=== PATIENT | male | born 1955 | race Caucasian/White ===

== ENCOUNTER 2021-10-15 10:10 | Day surgery (SDC) | payer MEDICARE, OTHER ==
[~2021-10-15] VITALS: Ht 170.2 cm; Wt 90.9 kg
[~2021-10-15 10:10] MED LIST: MELOXICAM7.5 MG PO; TYLENOL325 MG PO; ZYRTEC10 M3 PO
--- NOTE | 2021-10-15 13:17 | NUR ---
10/15/21 1317 Luzma Collins 1232 PT ARRIVED IN PACU SLEEPY LAYING PRONE. NO C/O'S. 1245 RESTING. REU. 1300 SITTING AT SIDE OF BED SIPPING ON WATER. 1305 LEFT VIA W/C.
--- NOTE | 2021-10-17 16:32 | PATH ---
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 D46.9 (myelodysplastic syndrome, unspecified) DIAGNOSIS SUMMARY: A. Peripheral blood - Moderate macrocytic, normochromic anemia. B. Bone marrow aspirate smears, clot section (cell block) and core biopsy: - Hypercellular bone marrow (80%) with dyshematopoiesis and ring sideroblasts consistent with myelodysplastic syndrome. - No increase in blasts. - Please see Diagnostic Comment. DIAGNOSTIC COMMENT: Bone marrow evaluation is significant for marked hypercellularity and dyserythropoiesis predominantly seen in erythroid and megakaryocyte lineage. Many ring sideroblasts are also identified on iron stain. Patient history of myelodysplastic syndrome ([id number], 04/12/2018) is noted. The current findings are also consistent with myelodysplastic syndrome, multilineage dysplasia with ring sideroblasts (MDS-ML-RS). No increase in blasts is present. Karyotype analysis, MDS FISH panel, and molecular analysis for SF3B1 mutation are being performed and the results will be reported by addendum. This case is reviewed and dictated by Ender Garcia MD. A board-certified hematopathologist. NA:smn:C2NR PERIPHERAL BLOOD: HEMOGRAM ([facility]; 10/15/2021): WBC 4.5 K/uL, RBC 2.07 M/uL, HGB 8.7 g/dL, HCT 25.6%, MCV 123.8 fL, MCH 42.0 pg, MCHC 33.9 g/dL, RDW 16.0%, PLT 372 K/uL. DIFFERENTIAL COUNT: 47% neutrophils, 39% lymphocytes, 10.7% monocytes, 3.3% eosinophils, 0.1% basophils. Review of the peripheral blood smear and CBC data demonstrate that the RBCs are decreased in number and are macrocytic with moderate anemia present. Mild anisopoikilocytosis is noted with occasional nucleated RBCs encountered. No rouleaux formation is identified. The WBCs are PATIENT NAME: GRAEME ALARCON PATHOLOGY DATE OF : 53 REPORT #: [id number] PHYSICIAN: HUMBERTO PATHOLOGY PCP: DONAL URBAN REPORT IS CONFIDENTIAL AND NOT TO BE RELEASED WITHOUT AUTHORIZATION [facility] [address] [place], [place] [address] Signed normal in number and unremarkable in morphology. The platelets are normal in number with occasional large platelets seen. BONE MARROW: BONE MARROW ASPIRATE SMEARS: The bone marrow aspirate smears are adequately cellular for evaluation. Trilineage hematopoiesis is present. Erythroid hyperplasia is noted. The erythroid precursors are left shifted with megaloblastic changes noted. Dyshematopoiesis is also identified. No increase in blasts is present. The megakaryocytes are scattered and appear increased in number with some showing atypical morphology characterized by atypical multinucleation and occasional micro megakaryocytes seen. BONE MARROW DIFFERENTIAL: 1% blasts, 9% myelocytes, 32% neutrophils, 4% lymphocytes, 5% eosinophils, and 49% erythroid. BONE MARROW CORE BIOPSY AND CLOT SECTION: The bone marrow core biopsy demonstrates markedly hypercellular bone marrow with an average cellularity of 80%. The trilineage hematopoiesis is present with progressive maturation. There are no lymphoid aggregates, granulomas, or metastatic tumor cells present. The megakaryocytes are increased in number with atypical morphology. The cell block shows similar findings. SPECIAL STAINS (with appropriately active control): - Iron (aspirate smear): Storage iron increased with increased ring sideroblasts (more than 30%). - Iron (block B): Storage iron present, ring sideroblasts identified. - Reticulin stain (block A1): Moderate increase in bone marrow reticulin fibrosis (MF-2). - PAS: Highlights many megakaryocytes and erythroid precursors. IMMUNOHISTOCHEMICAL STAINS (performed on block A1 with appropriately active control): - CD34: No increased number of blasts. - CD117: No increased number of blasts. - MPO: Highlights myeloid precursors. - CD71: Highlights erythroid precursors. - E-cadherin: Highlights early erythroid precursors. - Factor VIII: Highlights megakaryocytes with abnormal morphology. NA:smn FLOW CYTOMETRY: Bone marrow aspirate, flow cytometry: PATIENT NAME: GRAEME ALARCON PATHOLOGY DATE OF : 53 REPORT #: [id number] PHYSICIAN: HUMBERTO PATHOLOGY PCP: DONAL URBAN REPORT IS CONFIDENTIAL AND NOT TO BE RELEASED WITHOUT AUTHORIZATION [facility] [address] [facility] [place], [place] [address] Signed - No increase in blasts (0.8% myeloblasts). - Myeloid with variable marking. - Monocytes with increase CD56 expression. - B-cells with mild Lambda bias. - No atypical T- cell population. - See Comment. COMMENT: Patient history of myelodysplastic syndrome (MDS) is noted. No increase in blasts is detected. Variable myeloid and monocytic marking could be seen in MDS. Correlation with clinical, morphologic, and genetic findings is recommended for full interpretation. FLOW CYTOMETRY ANALYSIS: FLOW DIFFERENTIAL (% Total CD45 vs. SSC gating): Myeloid 87%; Lymphoid 5%; Monocyte 2%; Dim CD45/Blast: 0.9%. Cell Count: 8.5 x 10*3/uL. POPULATION ANALYSIS: BLASTS: Analysis of the dim CD45 gate demonstrates 0.8% myeloblasts by CD34/CD117. LYMPHOID CELLS: The lymphocyte gate comprises 5% of total events and includes 87% T-cells with a CD4:CD8 ratio of 0.9:1 and normal sapp T-cell antigen expression. 3% of lymphocytes are mildly lambda biased B-cells with a kappa:lambda ratio of 0.9:1. The remainders are NK-cells. MYELOID CELLS: The myeloid population comprises 87% of the total events. Decreased SSC is observed. MONOCYTES: The monocyte population comprises 2% of the total events. Monocytes are not increased. Some decreased expression with HLA-DR and increased expression with CD56 is observed. PLASMA CELLS: 0.4% plasma cells are detected in the screening gate neg-dimCD45/CD38. Plasma cells are CD45 dim and positive for CD19. ANTIBODIES USED: KAPPA, LAMBDA, CD20, CD10, CD19, CD23, CD38, CD16, CD56, CD8, CD5, CD2, CD4, CD7, CD3, CD14, CD33, CD13, HLADR, CD34, CD117, CD15, CD45: TOTAL ANTIBODIES USED: 23. TCS FINAL DIAGNOSIS PERFORMED BY: Ender Garcia MD, FACP, Oct 16 2021 1:45PM CYTOGENETICS: Pending, to be reported by addendum. FISH ANALYSIS: Pending, to be reported by addendum. PATIENT NAME: GRAEME ALARCON PATHOLOGY DATE OF : 53 REPORT #: [id number] PHYSICIAN: HUMBERTO PATHOLOGY PCP: DONAL URBAN REPORT IS CONFIDENTIAL AND NOT TO BE RELEASED WITHOUT AUTHORIZATION [facility] [address] [place], [place] [address] Signed MOLECULAR / PCR: Pending, to be reported by addendum. GROSS DESCRIPTION: Two specimens are received in two containers, labeled "WC." A. The specimen, labeled "WC, core," is received in formalin and consists of two cylindrical bone core fragments measuring 0.3 in diameter and 0.4-1.0 in length. The specimen is entirely submitted in cassette A1 following decalcification in Immunocal. Cold ischemic time: Cannot be determined because of lack of information Approximate time in formalin: Six hours B. The specimen, labeled "WC, clot," is received in formalin and consists of thickened clot material measuring 1.7 x 0.9 x 0.4 cm in aggregate. The specimen is filtered and entirely submitted in cassette B1. Bone marrow inventory also includes: Three peripheral smears, one EDTA tube bone marrow, two heparin tubes (one bone marrow, one peripheral blood) AT (under the direct supervision of a pathologist) The Gross Description was prepared using a voice recognition system. The report was reviewed for accuracy; however, sound-alike word errors, addition and/or deletions may occur. If there is any question about this report, please contact Client Services. ADDITIONAL NOTES: Immunohistochemical and/or in situ hybridization studies were performed on this case with the appropriate positive controls that react as expected. This test was developed and its performance characteristics determined by [facility]. It has not been cleared or approved by the U.S. Food and Drug Administration. The FDA has determined that such clearance or approval is not necessary. This test is used for clinical purposes. It should not be regarded as investigational or for research. [facility] is certified under the Clinical Laboratory Improvement Amendments of 1988 (CLIA) as qualified to perform high complexity clinical laboratory testing. This assay has not been validated for specimens that have been decalcified. In this case, certain antibodies were performed by both immunohistochemistry and flow cytometry analysis because flow cytometry analysis did not fully explain all the light microscopic findings. PATIENT NAME: GRAEME ALARCON PATHOLOGY DATE OF : 53 REPORT #: [id number] PHYSICIAN: HUMBERTO SORIANO PCP: DONAL URBAN REPORT IS CONFIDENTIAL AND NOT TO BE RELEASED WITHOUT AUTHORIZATION [address] [address] Signed Immunohistochemistry aided in the analysis. Both methods are deemed medically necessary in this case. This test was developed and its performance characteristics determined by [facility]. It has not been cleared or approved by the US Food and Drug Administration. The FDA does not require this test to go through premarket FDA review. This test is used for clinical purposes. It should not be regarded as investigational or for research. This laboratory is certified under the Clinical Laboratory Improvement Amendments (CLIA) as qualified to perform high complexity clinical laboratory testing. PERFORMING LABORATORY: The technical component was performed by [facility], [address] [place] [address] (CLIA#: [id number]). Professional interpretation was performed by [facility], [address] [address] (CLIA# [id number]). The technical component was performed by [facility], [address] [place] [address] (CLIA# [id number]). Professional interpretation was performed by [facility], [address] [place] [address] (CLIA# [id number]). IMAGES: [id number]: [id number]: [id number] Diagnostician: Marcelino Castellanos MD Pathologist Electronically Signed 10/17/2021 Copies: ~ PATIENT NAME: GRAEME ALARCON PATHOLOGY DATE OF : 53 REPORT #: [id number] PHYSICIAN: HUMBERTO SORIANO PCP: DONAL URBAN REPORT IS CONFIDENTIAL AND NOT TO BE RELEASED WITHOUT AUTHORIZATION
== END 2021-10-15 13:05 | disposition home or self-care (01) ==
LOC: DS 10:10 → OPS 10:10 → DS 12:00 → OPS 12:00
PROVIDERS: ATTEND Specialist
PROC: 079T3ZX Drainage of Bone Marrow, Percutaneous Approach, Diagnostic (ICD-10-PCS; 2021-10-15)
PROC: 07DR3ZX Extraction of Iliac Bone Marrow, Percutaneous Approach, Diagnostic (ICD-10-PCS; principal; 2021-10-15 12:00)
DX: D46.9 Myelodysplastic syndrome, unspecified (principal); E78.5 Hyperlipidemia, unspecified
CPT/HCPCS: 00520; 36415; 85025; 85060; J2001; J2704; J7121

== ENCOUNTER 2024-06-28 10:20 | Day surgery (SDC) | payer MEDICARE, OTHER ==
[2024-06-26 09:38] VITALS: BP 133/72
[~2024-06-28] VITALS: Ht 170.2 cm; Wt 95.5 kg
[~2024-06-28 10:20] MED LIST changes: +CELEBREX100 MG PO; +IBLOOD GLUCOSE TEST STRIP 1 EA TEST VI PRN; +LACTATED RINGER'S 1,000 ML IV SCH; +LIDOCAINE HCL 1% 5 ML SDV INJ ONE; +REBLOZYL75 MG INJ; +TYLENOL PM EXS1 EACH PO; -TYLENOL325 MG PO
[2024-06-28 10:46] VITALS: BP 124/46
[2024-06-28 10:46] LABS: BASOPHILS 3.1 % (0-2); BASOPHILS, ABSOLUTE 0.2 %; EOSINOPHILS 4.6 % (0-6); EOSINOPHILS, ABSOLUTE 0.2; HEMATOCRIT 19.9 % (35.0-50.0); HEMOGLOBIN 6.6 g/dL (12.0-18.0); LYMPHOCYTES 35.3 % (24-44); LYMPHOCYTES, ABSOLUTE 1.8; MCH 37.9 (27-36); MCHC 33.4 g/dl (30-36); MCV 113.4 fl (81-99); MONOCYTES 10.2 % (0-12); MONOCYTES, ABSOLUTE 0.5; NEUTROPHILS 46.8 % (39-80); NEUTROPHILS, ABSOLUTE 2.3; PLATELET COUNT 332 K/uL (140-440); RBC 1.75 M/ul (4.3-5.7); RDW 25.8 (10.5-15.0)
[2024-06-28 11:01] LABS: ALBUMIN/GLOBULIN RATIO 1.29 (1.1-2.4); ANION GAP 14.4 (7-21); BILIRUBIN, TOTAL 1.4 mg/dL (0.2-1.0); BUN/CREATININE RATIO 23.07 (6.0-28.6); CALCIUM 8.7 mg/dL (8.5-10.1); CREATININE, SERUM 1.04 mg/dL (0.70-1.30); POTASSIUM 4.4 mmol/L (3.5-5.1); PROTEIN, TOTAL 7.1 g/dL (6.4-8.2)
[2024-06-28] MEDS ORDERED: LIDOCAINE HCL 2% 5 ML SDV ONE (12:09)
[2024-06-28] MEDS ORDERED: propofoL 200 MG/20 ML VIAL ONE ×2 (12:09)
--- NOTE | 2024-06-28 12:38 | NUR ---
06/28/24 1238 Luzma Collins 1220 PT ARRIVED IN PACU AWAKE WITH NO C/O'S. 1235 RESTING. REU.
[2024-06-28 12:46] VITALS: BP 132/69
[2024-06-29 14:10] LABS: SMEAR REVIEW BLOOD SEE COMMENTS
[2024-06-29 21:02] LABS: HAPTOGLOBIN 40 mg/dL (30-200)
--- NOTE | 2024-07-11 14:44 | PATH ---
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 - No circulating blasts are identified. Bone marrow biopsy and aspiration: - 95% cellularity with less than 1% blasts. - Increased ring sideroblasts, approximately 40%. 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 - Negative for reticulin fibrosis. - See diagnostic comment. 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 The findings in this marrow are consistent with this diagnosis. Less than 1% blasts are noted. Approximately 40% ring sideroblasts are detected. Pending studies at the time of this report include chromosome analysis, FISH panel for MDS, and NGS testing for SF3B1. 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 Both prior bone marrow exams demonstrated mutations with SF3B1. The patient has been treated with Luspatercept until June 2024. The patient has progressive anemia and this bone marrow study is for re-evaluation. PATIENT NAME: GRAEME ALARCON PATHOLOGY DATE OF : 53 REPORT #: [id number] PHYSICIAN: HUMBERTO PATHOLOGY PCP: DONAL URBAN REPORT IS CONFIDENTIAL AND NOT TO BE RELEASED WITHOUT AUTHORIZATION [facility] [address], [place] [address] Signed PERIPHERAL BLOOD: HEMOGRAM (06/28/2024): WBC 5.0 K/ul, RBC 1.75 M/ul, HGB 6.6 g/dl, HCT 19.9%, MCV 113.4 fl, MCH 37.9 pg, MCHC 33.4 g/dl, RDW 25.8%, PLT 332 K/ul, MPV 9.9 fl. Absolute neutrophil count 2,300/ul. AUTOMATED DIFFERENTIAL COUNT: Neutrophils 46.8%, lymphocytes 35.3%, monocytes 10.2%, eosinophils 4.6%, basophils 3.1%. The red blood cells are macrocytic and hyperchromic with increased aniso-poikilocytosis. Variably sized RBC's are present with some teardrop RBC's. The neutrophils are unremarkable. Lymphocytes are composed of small mature appearing forms with some atypical large forms. Some atypical monocytes are also noted. Platelets appear normal in number and morphology with no platelet clumping or RBC microangiopathic effect identified. No blasts are identified. BONE MARROW: ASPIRATE SMEARS/TOUCH IMPRINT: The aspirate smears are adequate for evaluation. Scattered erythroid precursors show adequate maturation with some megaloblastoid maturation. The myeloid precursors show full maturation with unremarkable morphology. There is no increase in blasts. Megakaryocytes are identified with areas of abnormal morphology. Some atypical megakaryocytes are noted with dysplastic "pawn-ball" like morphology. BONE MARROW DIFFERENTIAL COUNT (300 cells): Blasts less than 1%. promyelocytes less than 1%, myelocytes 9%, metamyelocytes/bands/segs 41%, erythroid precursors 38%, lymphocytes 5%, monocytes 4%, eosinophils 3%, plasma cells less than 1%. M:E ratio: 1.4:1 BONE MARROW CORE BIOPSY/ASPIRATE CLOT/CELL BLOCK: The aspirate clot section and the core biopsy are adequate for evaluation. The core biopsy demonstrates unremarkable trabecular bone. The cellularity is increased for age, estimated at 95%. The erythroid precursors are within normal limits with essentially unremarkable maturation. The myeloid precursors are unremarkable with no significant dyspoiesis. Blasts are not increased. Megakaryocytes appear normal in number and in morphology. No granulomas, atypical lymphoid aggregates or foreign malignant cells are detected. SPECIAL STAINS (with adequate controls): - iron (aspirate smear): Increased with ring sideroblasts. - iron (cell block): Focal positive by Prussian Blue staining. - Reticulin (block A1): No reticulin fibrosis. - PAS (block A1): Increased megakaryocytes with some "pawn-ball" dyspoietic morphology. PATIENT NAME: GRAEME ALARCON PATHOLOGY DATE OF : 53 REPORT #: [id number] PHYSICIAN: HUMBERTO PATHOLOGY PCP: DONAL URBAN REPORT IS CONFIDENTIAL AND NOT TO BE RELEASED WITHOUT AUTHORIZATION [facility] [address] [place] [id number] Signed IMMUNOHISTOCHEMISTRY STAINS (performed on block A1 with adequate controls). - CD71: 50% - PAX5: Less than 2% with no atypical architecture. - CD3: Increased marking in small reactive appearing lymphoid aggregates. FLOW CYTOMETRY: Bone marrow, flow cytometry: - No diagnostic abnormal populations are identified by flow cytometry. - See comment. COMMENT: No increase in blasts or lymphoid clonality are detected. While no diagnostic hematopoietic abnormality is detected in this study, correlation with clinical, morphologic, and genetic findings is recommended for full interpretation and to assess for disease processes not fully examined by flow cytometry analysis, including myelodysplastic syndrome or myeloproliferative neoplasm. The patient's prior history of myelodysplastic neoplasm with ring sideroblasts is noted. FLOW CYTOMETRY ANALYSIS: FLOW DIFFERENTIAL (% Total CD45 vs. SSC gating): Myeloid 74%; Lymphoid 5%; Monocyte 1%; Dim CD45/Blast: 0.5%; Debris/RBCs 13%. Cell Count: 4.8 x 10*3/uL. POPULATION ANALYSIS: BLASTS: Analysis of the dim CD45 gate demonstrates 0.5% myeloblasts by CD34/CD117 and 0.7% hematogones. LYMPHOID CELLS: The lymphocyte gate comprises 5% of total events and includes 58% T-cells with a CD4:CD8 ratio of 1.0:1 and normal sapp T-cell antigen expression. 10% of lymphocytes are polyclonal B-cells with a kappa:lambda ratio of 2.9:1. The remainders are NK-cells. MYELOID CELLS: The myeloid population comprises 74% of the total events. No aberrant immunophenotypic expression is detected. MONOCYTES: The monocyte population comprises 1% of the total events. Monocytes are not increased. No aberrant immunophenotypic expression is detected. PLASMA CELLS: 0.4% plasma cells are detected in the screening gate neg-dimCD45/CD38. Plasma cells are CD45 dim and positive for CD19. ANTIBODIES USED: KAPPA, LAMBDA, CD20, CD10, CD19, CD23, CD38, CD16, CD56, CD8, CD5, CD2, CD4, CD7, CD3, CD14, CD33, CD13, HLADR, CD34, CD117, CD15, CD45: TOTAL ANTIBODIES USED: 23. SHR FINAL DIAGNOSIS PERFORMED BY: Chris Malone MD, Jun 29 2024 5:51PM PATIENT NAME: GRAEME ALARCON PATHOLOGY DATE OF : 53 REPORT #: [id number] PHYSICIAN: HUMBERTO PATHOLOGY PCP: DONAL URBAN REPORT IS CONFIDENTIAL AND NOT TO BE RELEASED WITHOUT AUTHORIZATION [facility] [address], [place] [address] Signed CYTOGENETICS: Chromosome analysis is pending. FISH ANALYSIS: A FISH panel for MDS is pending. MOLECULAR / PCR: A NGS profile for CMML/MDS is pending ([facility]). GROSS DESCRIPTION: Two specimens are received in two containers A. The specimen, labeled and designated "Gerri, bone marrow core biopsy," is received in formalin and consists of a red-king core of bone (1.7 cm in length and ranging in diameter from 0.2 to 0.3 cm). The specimen is submitted entirely in cassette (A1) following decalcification in Immunocal. B. The specimen, labeled and designated "Gerri, bone marrow clot biopsy," is received in formalin and consists of a portion of red-brown clot-like material (2.0 x 0.8 x 0.3 cm in aggregate). The specimen is submitted entirely in cassette (B1). VB (under the direct supervision of a pathologist) The Gross Description was prepared using a voice recognition system. The report was reviewed for accuracy; however, sound-alike word errors, addition and/or deletions may occur. If there is any question about this report, please contact Client Services. ADDITIONAL NOTES: Immunohistochemical and/or in situ hybridization studies if performed in this case included appropriate positive controls that reacted as expected. This test was developed and its performance characteristics determined by [facility]. It has not been cleared or approved by the U.S. Food and Drug Administration. The FDA has determined that such clearance or approval is not necessary. This test is used for clinical purposes. It should not be regarded as investigational or for research. [facility] is certified under the Clinical Laboratory Improvement Amendments of 1988 (CLIA) as qualified to perform high complexity clinical laboratory testing. In this case, certain antibodies were performed by both immunohistochemistry and flow cytometry analysis because flow cytometry analysis did not fully explain all the light microscopic findings. Immunohistochemistry aided in the analysis. Both methods are deemed medically PATIENT NAME: GRAEME ALARCON PATHOLOGY DATE OF : 53 REPORT #: [id number] PHYSICIAN: HUMBERTO SORIANO PCP: DONAL URBAN REPORT IS CONFIDENTIAL AND NOT TO BE RELEASED WITHOUT AUTHORIZATION [address] [address] Signed necessary in this case. This test was developed and its performance characteristics determined by [facility]. It has not been cleared or approved by the US Food and Drug Administration. The FDA does not require this test to go through premarket FDA review. This test is used for clinical purposes. It should not be regarded as investigational or for research. This laboratory is certified under the Clinical Laboratory Improvement Amendments (CLIA) as qualified to perform high complexity clinical laboratory testing. PERFORMING LABORATORY: The technical preparation was performed by [facility], [facility] [place] [address] (CLIA#:� [id number]). Professional interpretation was performed by [facility], [address] [place] [phone] (CLIA#: [id number]). Technical component was performed by [facility], [address] [place] [address] (CLIA# [id number]). Professional interpretation was performed by [facility], [address] [place] [phone] (CLIA#: [id number]). IMAGES: A: [id number] A: [id number] SPECIMEN SOURCE: A. 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 7q deletion/monosomy 7: Not detected. Trisomy 8: Not detected. 20q deletion: Not detected. KMT2A (MLL) rearrangement: Not detected. 17p (p53) deletion: Not detected Fluorescence in situ hybridization (FISH) analysis was performed using a PATIENT NAME: GRAEME ALARCON PATHOLOGY DATE OF : 53 REPORT #: [id number] PHYSICIAN: HUMBERTO PATHOLOGY PCP: DONAL URBAN REPORT IS CONFIDENTIAL AND NOT TO BE RELEASED WITHOUT AUTHORIZATION [facility] [address] [place] [facility] [place] [place] [address] Signed specific set of probes for myelodysplastic syndrome (MDS). Counts for all probe signals were within the normal reference range. No evidence of deletion 5q, 7q, 17p or 20q or monosomy 5 or 7, trisomy 8, or KMT2A rearrangement was detected. This finding represents a NORMAL result. This analysis is limited to abnormalities detectable by the specific probes included in the study. FISH should be interpreted within the context of a full cytogenetic analysis and hematologic evaluation. ISCN: Probe Set Detail: EGR1/H3O804: nuc mario 5p15.31(P3L788g6), 5q31(EGR1x2)[200] K5O781/CEP7: nuc mario 7q31(T7K905v8),7q11.2q11.21(CEP7x2)[200] CEP8: nuc mario 8q11.1q11.21(CEP8x2)[200] C32A046: nuc mario 20q12(C45W390a9)[200] KMT2A (MLL): nuc mario 11q23(5'KMT2A,3'KMT2A)x2(5'KMT2A con 3'VYD3Hh6)[200] Chromosome 17: nuc mario 17p13.1(TP53x2), 17p11.2(EGH22s6)[200] References: Isabella Guevara (2013) Hematology Am Soc Hematol Educ Program 2013:504-10. PMID [id number] Eleonora Villalba and Edy Moore (2011) Hematology 16(3):131-8. PMID: [id number] FISH Analysis Summary: Nuclei Scored: 200 Scoring Method: Manual; CPT Code 30500 Number of Probe units: 5 Multiplex Cells analyzed: Interphase Probe sets: Chrom 8: ISAAC 8, Chrom 20: X97G895, Chrom 5: EGR1, Chrom 5: J1W823, Chrom 7: CEN7, Chrom 7: N9J7816, Chrom 11: KMT2A (MLL) 3', Chrom 11: KMT2A (MLL) 5', TP53 (17p13.1)/ CEP 17 (17p11) ADDITIONAL NOTES: This test was developed and its performance characteristics determined by [facility], [employer].� It has not been cleared or approved by the US Food and Drug Administration. The [employer] probe vendor for this study was [employer] PERFORMING LABORATORY: The technical component of the FISH testing was performed by [facility], [facility] [place] [address] (CLIA#:� [id number]). Professional interpretation was performed by [facility], [facility] [place] [address] (CLIA#: [id number]). PATIENT NAME: GRAEME ALARCON PATHOLOGY DATE OF : 53 REPORT #: [id number] PHYSICIAN: HUMBERTO SORIANO PCP: DONAL URBAN REPORT IS CONFIDENTIAL AND NOT TO BE RELEASED WITHOUT AUTHORIZATION [facility] [address] [place] [address] Signed FINAL DIAGNOSIS OF FISH STUDY PERFORMED BY: Joshua Hercules MD, Pathologist Jul 10 2024 3:42PM REASON FOR ADDENDUM: To report results of additional testing. Karyotype: 46,XY[20] Interpretation: NORMAL MALE KARYOTYPE Cytogenetic analysis shows a normal male karyotype in all cells analyzed. Comments: A normal karyotype was observed in a previous specimen. Please refer to [employer] [employer] Results (below). Standard cytogenetic analysis may not detect subtle submicroscopic rearrangements and may not include metaphases from abnormal cell populations with low mitotic rates or present in low levels. Test Detail: Metaphases Counted: 20 Metaphases Analyzed: 20 Metaphases Karyotyped: 2 Culture Type: 24EB, 48EB Banding Technique: GTG Banding Resolution: 375 CPT Codes: 71951, 88731*, 38233 [facility] Results: Accession / CaseNo: [id number] / [id number] Report Date: 10/24/2021 Specimen Type: Bone Marrow Karyotype: 46,XY[20] *Professional interpretation service generally billed directly to carriers by [facility]. The Accessioning Component and Technical Component Processing of this test was completed at [facility] [address] / [address] / [phone] / CLIA # [id number] / Service Agent(s): Erich Vivar M.D. The Technical Component Analysis of this test was completed at [facility] [address] / [address] / [phone] / CLIA # [id number] / Service Agent(s): Andrzej Hill M.D. The Professional Component of this test was completed at [facility] , [address] [facility] [place] / [address] / [phone] / CLIA # [id number] / Service Agent(s): Aliya Prabhakar MD and [facility] [address] / [address] / [phone] / CLIA # [id number] / PATIENT NAME: GRAEME ALARCON PATHOLOGY DATE OF : 53 REPORT #: [id number] PHYSICIAN: HUMBERTO PATHOLOGY PCP: DONAL URBAN REPORT IS CONFIDENTIAL AND NOT TO BE RELEASED WITHOUT AUTHORIZATION [facility] [address], [place] [address] Signed Service Agent(s): Andrzej Hill M.D. Analysis Code(s): [id number], [id number], [id number] Interpretation Code(s): 19943087 (Accession / CaseNo: [id number] / [id number]) The performance characteristics of this test have been determined by the performing laboratory. This test has not been approved by the FDA. The FDA has determined such clearance or approval is not necessary. This laboratory is CLIA certified to perform high complexity clinical testing. [employer] Results captures historical data from previous patient reports. These results may not have been reviewed by the doctor performing the professional interpretation for this report. Images that may be included within this report are community service representative of the patient but not all testing in its entirety and should not be used to render a result. The CPT codes provided with our test descriptions are based on AMA guidelines and are for informational purposes only. Correct CPT coding is the sole responsibility of the billing constitution party. Please direct any questions regarding coding to the payer being billed. To report results of additional testing. Bone marrow, [employer] [facility] MDS/CMML Profile: Results Summary: - SNVs/Indels: - SF3B1 K700E - TET2 Y2182L - Pertinent Negatives: NO alterations detected in the following genes: FLT3, IDH1, IDH2, NPM1, TP53 Interpretation: - SF3B1 mutations can be seen in various myeloid neoplasms and are strongly associated with ring sideroblasts. SF3B1 mutations are associated with a favorable prognosis in MDS and a poor prognosis in AML and ET. - TET2 mutations can be seen in various myeloid neoplasms, and are associated with an increased response to hypomethylating agents and a poor prognosis in MDS after hematopoietic stem cell transplantation. See full list of genes tested in [employer] Evaluated section at end of report. Abbreviations: SNVs=single nucleotide variants, Indels=insertions/deletions. The Accessioning Component, Technical Component Processing, Analysis and Professional Component of this test was completed at [facility] [place], PATIENT NAME: GRAEME ALARCON PATHOLOGY DATE OF : 53 REPORT #: [id number] PHYSICIAN: HUMBERTO SORIANO PCP: DONAL URBAN REPORT IS CONFIDENTIAL AND NOT TO BE RELEASED WITHOUT AUTHORIZATION [facility] [address], [place] [address] [place] / [address] / [phone] / ZOË # [id number] / Service Agent(s): Erich Vivar M.D. Analysis Code(s): [id number] Interpretation Code(s): [id number] (Accession / CaseNo: [id number] / [id number]) The performance characteristics of this test have been determined by the performing laboratory. This test has not been approved by the FDA. The FDA has determined such clearance or approval is not necessary. This laboratory is CLIA certified to perform high complexity clinical testing. Images that may be included within this report are community service representative of the patient but not all testing in its entirety and should not be used to render a result. ADDENDUM NOTE: The NGS panel notes mutations in SF3B1 and TET2. The findings are supportive of myelodysplastic neoplasm. [facility] Diagnostician: Chris Malone MD Pathologist Electronically Signed 07/11/2024 Copies: ~ PATIENT NAME: GRAEME ALARCON PATHOLOGY DATE OF : 53 REPORT #: [id number] PHYSICIAN: HUMBERTO SORIANO PCP: DONAL URBAN REPORT IS CONFIDENTIAL AND NOT TO BE RELEASED WITHOUT AUTHORIZATION
== END 2024-06-28 12:52 | disposition home or self-care (01) ==
LOC: OPS 10:20 → DS 10:20 → OPS 12:00 → DS 12:00 → OPS 12:52
PROVIDERS: ATTEND Specialist
PROC: 07DT0ZX Extraction of Bone Marrow, Open Approach, Diagnostic (ICD-10-PCS; 2024-06-28)
PROC: 079T3ZX Drainage of Bone Marrow, Percutaneous Approach, Diagnostic (ICD-10-PCS; principal; 2024-06-28 12:00)
DX: D64.3 Other sideroblastic anemias (principal); M81.0 Age-related osteoporosis without current pathological fracture; E78.5 Hyperlipidemia, unspecified; E03.8 Other specified hypothyroidism
CPT/HCPCS: 01112; 36415; 80053; 83010; 83615; 85025; 85060; 88184; 88185; 88305; 88311; 88313; 88341; 88342; 88377; J2003; J2704; J7121

== ENCOUNTER 2024-08-18 11:47 | Emergency (ER) | payer MEDICARE, OTHER ==
[~2024-08-18] VITALS: Ht 170.2 cm; Wt 95.0 kg
[~2024-08-18 11:47] MED LIST changes: -IBLOOD GLUCOSE TEST STRIP 1 EA TEST VI PRN; -LACTATED RINGER'S 1,000 ML IV SCH; -LIDOCAINE HCL 1% 5 ML SDV INJ ONE
[2024-08-18 12:12] LABS: BASOPHILS 0.9 % (0.2-1.2); EOSINOPHILS 4.7 % (0.8-7.0); HEMATOCRIT 17.7 % (40.1-51.0); LYMPHOCYTES 27.9 % (21.8-53.1); MCH 35.4 PG (25.7-32.2); MCHC 32.2 g/dL (32.3-36.5); MCV 109.9 fL (79.0-92.2); MONOCYTES 4.4 % (5.3-12.2); NEUTROPHILS 61.8 % (34.0-67.9); PLATELET COUNT 69 K/uL (163-337); RBC 1.61 M/uL (4.63-6.08)
[2024-08-18 12:15] LABS: HEMOGLOBIN 5.7 g/dL (13.7-17.5)
[2024-08-18] MEDS ORDERED: ASPIRIN 81 MG CHEW PO ONE (12:15)
[2024-08-18 12:30] LABS: ALBUMIN 3.8 g/dL (3.4-5.0); ALBUMIN/GLOBULIN RATIO 1.19 (1.1-2.4); ANION GAP 12.6 (7-21); BILIRUBIN, TOTAL 0.9 mg/dL (0.2-1.0); BUN/CREATININE RATIO 25.53 (6.0-28.6); CALCIUM 8.6 mg/dL (8.5-10.1); CREATININE, SERUM 0.94 mg/dL (0.70-1.30); MAGNESIUM 1.9 mg/dL (1.8-2.4); POTASSIUM 4.6 mmol/L (3.5-5.1)
[2024-08-18 18:20] VITALS: BP 144/87
--- NOTE | 2024-08-19 10:13 | EKG ---
[facility] [address] [facility] [place], [place] [address] Signed Normal sinus rhythm Normal ECG No previous ECGs available Confirmed by Dheeraj Hood DO ([id number]) on 08/19/2024 10:13:01 AM Electronically Signed By: DHEERAJ HOOD DO 08/19/24 1013 PATIENT NAME: GRAEME ALARCON Electrocardiogram DATE OF : 53 PHYSICIAN: DHEERAJ HOOD DO REPORT #: [id number] REPORT IS CONFIDENTIAL AND NOT TO BE RELEASED WITHOUT AUTHORIZATION
== END 2024-08-18 18:21 | disposition home or self-care (01) ==
LOC: ED 11:47
PROVIDERS: Emergency Medicine
DX: D64.9 Anemia, unspecified (principal); Z79.2 Long term (current) use of antibiotics
CPT/HCPCS: 36415; 36430; 71045; 80053; 83735; 84484; 85025; 85060; 86850; 86900; 86901; 86922; 93005; 93010; 99285-25; P9016